=== PATIENT | male | born 1955 | race Caucasian/White ===

== ENCOUNTER 2021-05-03 11:13 | Observation (INO) | payer OTHER ==
[2021-05-03] MEDS ORDERED: ASPIRIN 81 MG CHEWABLE TABLETS PO ONE (12:25)
[2021-05-03] MEDS ORDERED: ASPIRIN COATED 81 MG TABLET.EC ONE (12:42)
[2021-05-03 13:30] LABS: ALBUMIN 4.1 g/dl (3.4-5.0); BILIRUBIN,TOTAL 0.8 mg/dl (0.2-1); CALCIUM 9.5 mg/dl (8.5-10); CREATININE 0.8 mg/dl (0.55-1.3)
[2021-05-03 17:08] LABS: BASO % 0.6 % (0-2.0); EOS % 1.9 % (0-4.5); HEMATOCRIT 44.6 % (35.4-49); HEMOGLOBIN 14.7 GM/dL (11.7-16.9); LYMPH % 32.6 % (8-40); MCH 30.1 pg (25.7-33.7); MCHC 32.9 g/dl (32.0-35.9); MEAN CELL VOLUME 91.3 fl (80-96); MEAN PLT VOLUME 7.9 fl (7.5-11.1); MONO % 8.7 % (3.8-10.2); NEUT % 56.2 % (42.8-82.8); PLATELET COUNT 224 10^3/uL (134-434); RBC 4.88 M/mm3 (4.00-5.60); RDW 13.2 % (11.9-15.9); WHITE BLOOD COUNT 4.2 K/mm3 (4.0-10.0)
[2021-05-03 21:27] VITALS: BMI 27.8
[2021-05-04] MEDS: HYDROCHLOROTHIAZIDE 12.5 MG CAPSULE (FP) PO SCH ×2 (08:42→09:26)
[2021-05-04] MEDS: LOSARTAN POTASSIUM 50 MG TABLET PO SCH ×2 (08:42→09:26)
[2021-05-04] MEDS ORDERED: METHYLPHENIDATE HCL 36 MG PO SCH (10:00)
[2021-05-04] MEDS ORDERED: ASPIRIN COATED 81 MG TABLET.EC PO SCH (10:00)
[2021-05-04] MEDS ORDERED: PATIENT'S OWN MEDICATION (NON-FORMULARY) (Losartan/Hydrochlorothiazide [Losartan-Hctz 100- PO SCH (10:00)
[2021-05-04 10:07] VITALS: BP 139/82; PULSE 60; TEMP 98.6
== END 2021-05-04 17:00 | disposition home or self-care (01) ==
LOC: FER 11:13 → FM/S 17:51
PROVIDERS: ADMIT Internal Medicine; ATTEND Nurse Practitioner Acute Care
DX: R07.9 Chest pain, unspecified (principal); M79.602 Pain in left arm; E66.3 Overweight; Z68.27 Body mass index [BMI] 27.0-27.9, adult; I10 Essential (primary) hypertension
CPT/HCPCS: 36415; 71045-TC-FY; 78452-TC; 80053; 80061; 82550; 82553; 83036; 84443; 84484; 85025; 93005; 93017; 93306-TC; 99285-25; A9502; C9803-CS; G0378; U0003; U0005

== ENCOUNTER → 2022-02-24 | Day surgery (SDC) | payer OTHER, MEDICARE ==
[2022-02-21 14:54] VITALS: BMI 27.7
[~2022-02-24] MED LIST: ASPIRIN 81 MG CHEWABLE TABLETS PO ONE; BUPIVACAINE HCL/PF 2.5 MG/ML - 30 ML VIAL IJ ONE; LIDOCAINE HCL/PF 2% SDV 5ML VIAL ONE; MIDAZOLAM HCL 2 MG/2 ML SINGLE DOSE VIAL ONE; PROPOFOL 20 ML ONE
[2022-02-24 11:03] VITALS: BP 127/74; PULSE 58; RESP 18; TEMP 97.4
== END | disposition home or self-care (01) ==
LOC: FASU 10:04
PROVIDERS: ATTEND Orthopaedic Surgery
PROC: 0SBD4ZZ Excision of Left Knee Joint, Percutaneous Endoscopic Approach (ICD-10-PCS; principal; 2022-02-24)
DX: Z53.8 Procedure and treatment not carried out for other reasons (principal); M25.562 Pain in left knee

== ENCOUNTER 2022-07-07 08:28 | Day surgery (SDC) | payer OTHER, MEDICARE ==
[2022-06-29 16:46] VITALS: BMI 27.2
[2022-07-07] MEDS ORDERED: BUPIVACAINE HCL/PF 2.5 MG/ML - 30 ML VIAL IJ ONE (10:38)
[2022-07-07] MEDS ORDERED: PROPOFOL 20 ML ONE (11:00)
[2022-07-07] MEDS ORDERED: MIDAZOLAM HCL 2 MG/2 ML SINGLE DOSE VIAL ONE ×2 (11:00→11:36)
[2022-07-07] MEDS ORDERED: ONDANSETRON 4 MG/2 ML VIAL ONE (11:37)
[2022-07-07] MEDS ORDERED: DEXAMETHASONE SOD PHOSPHATE 4 MG/1 ML VIAL ONE (11:37)
[2022-07-07] MEDS ORDERED: ceFAZolin SODIUM 1 GM VIAL ONE (11:37)
[2022-07-07] MEDS ORDERED: ePHEDrine SULFATE 50 MG/1 ML AMPULE ONE (11:51)
[2022-07-07] MEDS ORDERED: ONDANSETRON 4 MG/2 ML VIAL IVPUSH PRN (12:21)
[2022-07-07] MEDS ORDERED: oxyCODONE HCL 5 MG TABLET PO PRN (12:21)
[2022-07-07] MEDS ORDERED: KETOROLAC TROMETHAMINE 30 MG/1 ML VIAL IVPUSH ONE (12:21)
[2022-07-07] MEDS ORDERED: ACETAMINOPHEN 1000 MG/100 ML BAG IVPB ONE (12:21)
[2022-07-07] MEDS ORDERED: LACTATED RINGERS SOLUTION 1,000 ML IV SCH (12:30)
[2022-07-07 13:29] VITALS: RESP 18; TEMP 97.8
[2022-07-07 14:11] VITALS: BP 109/68
[2022-07-07 14:12] VITALS: PULSE 67
== END 2022-07-07 14:13 | disposition home or self-care (01) ==
LOC: FASU 08:28
PROVIDERS: ATTEND Orthopaedic Surgery
PROC: 0SBD4ZZ Excision of Left Knee Joint, Percutaneous Endoscopic Approach (ICD-10-PCS; 2022-07-07)
PROC: 0SBD4ZZ Excision of Left Knee Joint, Percutaneous Endoscopic Approach (ICD-10-PCS; principal; 2022-07-07 11:51)
DX: S83.282A Other tear of lateral meniscus, current injury, left knee, initial encounter (principal); S83.8X2A Sprain of other specified parts of left knee, initial encounter; M65.862 Other synovitis and tenosynovitis, left lower leg; X58.XXXA Exposure to other specified factors, initial encounter; Y93.9 Activity, unspecified; Y92.9 Unspecified place or not applicable
CPT/HCPCS: 94760